=== PATIENT | male | born 1945 ===

== ENCOUNTER 2017-09-11 14:29 | Inpatient (IN) | payer OTHER ==
[~2017-09-11] VITALS: Ht 167.6 cm; Wt 77.1 kg
[2017-09-11] MEDS ORDERED: HYZAAR 100-12.1 EACH PO (14:46)
[2017-09-11] MEDS ORDERED: DILTIAZEM 24HR120 MG PO (14:47)
[2017-09-11] MEDS ORDERED: PREVACID15 MG PO (14:47)
== END 2017-09-23 10:25 | disposition home or self-care (01) | DRG 331 ==
LOC: SURH 09-18 07:00 → O/R 09-18 09:42 → SURG 09-18 09:42 → RECOVERY 09-18 12:49 → SURH 09-18 14:28 → SURG 09-18 17:22
PROVIDERS: Surgery
PROC: 0DJD8ZZ Inspection of Lower Intestinal Tract, Via Natural or Artificial Opening Endoscopic (ICD-10-PCS; 2017-09-18)
PROC: 3E0F7GC Introduction of Other Therapeutic Substance into Respiratory Tract, Via Natural or Artificial Opening (ICD-10-PCS; 2017-09-18)
PROC: 0DTN4ZZ Resection of Sigmoid Colon, Percutaneous Endoscopic Approach (ICD-10-PCS; principal; 2017-09-18 07:00)
DX: K57.32 Diverticulitis of large intestine without perforation or abscess without bleeding (principal); I11.9 Hypertensive heart disease without heart failure; J45.20 Mild intermittent asthma, uncomplicated; R73.01 Impaired fasting glucose; R11.10 Vomiting, unspecified

== ENCOUNTER 2017-10-03 10:40 | Inpatient (IN) | payer OTHER ==
[~2017-10-03] VITALS: Ht 167.6 cm; Wt 77.1 kg
[~2017-10-03 10:40] MED LIST: DILTIAZEM 24HR120 MG PO; HYZAAR 100-12.1 EACH PO; PREVACID15 MG PO
[2017-10-09] MEDS ORDERED: FLAGYL500MG PO (15:35)
[2017-10-09] MEDS ORDERED: PROTONIX40 MG PO (15:35)
[2017-10-09] MEDS ORDERED: CARAFATE1 GM/10 ML PO (15:35)
[2017-10-09] MEDS ORDERED: CIPRO500 MG PO (15:35)
== END 2017-10-09 18:09 | disposition home or self-care (01) | DRG 603 ==
LOC: ER 10:40 → SURG 16:38 → SEC-K 16:38 → SURG 10-04 18:08
PROC: 3E0F7GC Introduction of Other Therapeutic Substance into Respiratory Tract, Via Natural or Artificial Opening (ICD-10-PCS; principal; 2017-10-04)
PROC: 02HV33Z Insertion of Infusion Device into Superior Vena Cava, Percutaneous Approach (ICD-10-PCS; 2017-10-06)
PROC: BW21Y0Z Computerized Tomography (CT Scan) of Abdomen and Pelvis using Other Contrast, Unenhanced and Enhanced (ICD-10-PCS; 2017-10-07)
DX: L03.311 Cellulitis of abdominal wall (principal); T88.8XXA Other specified complications of surgical and medical care, not elsewhere classified, initial encounter; Y84.8 Other medical procedures as the cause of abnormal reaction of the patient, or of later complication, without mention of misadventure at the time of the procedure; Y92.098 Other place in other non-institutional residence as the place of occurrence of the external cause; I11.9 Hypertensive heart disease without heart failure; R73.01 Impaired fasting glucose; Z90.49 Acquired absence of other specified parts of digestive tract; J45.30 Mild persistent asthma, uncomplicated; B95.61 Methicillin susceptible Staphylococcus aureus infection as the cause of diseases classified elsewhere; K52.89 Other specified noninfective gastroenteritis and colitis; K21.9 Gastro-esophageal reflux disease without esophagitis; K29.60 Other gastritis without bleeding

== ENCOUNTER 2022-01-21 09:44 | Inpatient (IN) | payer OTHER ==
[~2022-01-21] VITALS: Ht 152.4 cm; Wt 51.3 kg
[~2022-01-21 09:44] MED LIST changes: +CARAFATE1 GM/10 ML PO; +CIPRO500 MG PO; +FLAGYL500MG PO; +PROTONIX40 MG PO
[2022-01-21] MEDS ORDERED: PANTOPRAZOLE SO20 MG PO (10:05)
[2022-01-21] MEDS ORDERED: VANCOMYCIN HCL125 MG PO (10:05)
[2022-01-21] MEDS ORDERED: FLONASE16 GM NS (10:06)
[2022-01-21] MEDS ORDERED: MONTELUKAST SOD10 MG PO (10:06)
[2022-01-21] MEDS ORDERED: BUMETANIDE2 MG PO (10:07)
[2022-01-21] MEDS ORDERED: TOPROL XL100 M1 PO (10:08)
[2022-01-21] MEDS ORDERED: PEPCID AC20 MG PO (10:08)
[2022-01-21] MEDS ORDERED: QUESTRAN LIGHT210 GM PO (10:09)
[2022-01-25] MEDS ORDERED: AMIODARONE HCL200 MG (11:47)
[2022-01-25] MEDS ORDERED: VALSARTAN-HCTZ1 EAC1 (11:50)
[2022-01-25] MEDS ORDERED: ELIQUIS5 MG (11:50)
== END 2022-02-07 15:52 | disposition expired | DRG 371 ==
LOC: ER 09:44 → MEDJ 20:15
PROVIDERS: ADMIT Internal Medicine; ATTEND Internal Medicine
PROC: BW2110Z Computerized Tomography (CT Scan) of Abdomen and Pelvis using Low Osmolar Contrast, Unenhanced and Enhanced (ICD-10-PCS; 2022-01-21)
PROC: 8E0ZXY6 Isolation (ICD-10-PCS; 2022-01-22)
PROC: 02HV33Z Insertion of Infusion Device into Superior Vena Cava, Percutaneous Approach (ICD-10-PCS; 2022-01-27)
PROC: B24BYZZ Ultrasonography of Heart with Aorta using Other Contrast (ICD-10-PCS; 2022-02-03)
PROC: 4A12X45 Monitoring of Cardiac Electrical Activity, Ambulatory, External Approach (ICD-10-PCS; principal; 2022-02-04)
PROC: 5A0945A Assistance with Respiratory Ventilation, 24-96 Consecutive Hours, High Flow/Velocity Cannula (ICD-10-PCS; 2022-02-04)
PROC: 5A09457 Assistance with Respiratory Ventilation, 24-96 Consecutive Hours, Continuous Positive Airway Pressure (ICD-10-PCS; 2022-02-04)
DX: A04.72 Enterocolitis due to Clostridium difficile, not specified as recurrent (principal); I50.23 Acute on chronic systolic (congestive) heart failure; J96.01 Acute respiratory failure with hypoxia; K51.011 Ulcerative (chronic) pancolitis with rectal bleeding; I13.0 Hypertensive heart and chronic kidney disease with heart failure and stage 1 through stage 4 chronic kidney disease, or unspecified chronic kidney disease; N17.8 Other acute kidney failure; E87.2 Acidosis; J91.8 Pleural effusion in other conditions classified elsewhere; E87.79 Other fluid overload; E83.39 Other disorders of phosphorus metabolism; E88.09 Other disorders of plasma-protein metabolism, not elsewhere classified; E87.8 Other disorders of electrolyte and fluid balance, not elsewhere classified; I48.91 Unspecified atrial fibrillation; Z66 Do not resuscitate; Z86.16 Personal history of COVID-19; Z90.49 Acquired absence of other specified parts of digestive tract; Z95.810 Presence of automatic (implantable) cardiac defibrillator